=== PATIENT | female | born 1965 | race Caucasian/White ===

== ENCOUNTER 2017-09-29 11:42 | Emergency (ER) | payer OTHER | END 2017-09-29 12:55 | disposition home or self-care (01) | LOC: D.ER 11:42 | DX: J11.1 Influenza due to unidentified influenza virus with other respiratory manifestations (principal); R07.89 Other chest pain; R51 Headache; R50.9 Fever, unspecified ==

== ENCOUNTER 2018-01-25 09:19 | Emergency (ER) | payer OTHER ==
[~2018-01-25] VITALS: Ht 162.6 cm; Wt 78.2 kg
[2018-01-25 09:24] VITALS: Ht 162.6 cm; Wt 78.2 kg
[2018-01-25] MEDS ORDERED: ZANTAC150 MG PO (09:25)
[2018-01-25 10:26] LABS: BASOPHILS 1.1 % (0-2); EOSINOPHILS 4.1 % (0-7); HEMATOCRIT 40.9 % (36.0-48.0); HEMOGLOBIN 13.9 g/dL (12-16); LYMPHOCYTES 28.6 % (15-50); MEAN PLATELET VOLUME 10.6 fL (7.4-10.4); MONOCYTES 6.3 % (2-11); NEUTROPHILS 59.9 % (40-80); PLATELET COUNT 177 10x3/uL (130-400); RBC 4.35 10x6/uL (4.00-5.40); RDW 12.2 % (11.5-14.5); WBC 4.6 10x3/uL (4.8-10.8)
[2018-01-25 11:09] LABS: ALBUMIN 3.7 g/dL (3.4-5.0); ALT (SGPT) 32 U/L (10-68); CALC OSMOLALITY 285 mosm/kg (275-300); CALCIUM 9.2 mg/dL (8.5-10.1); CARBON DIOXIDE 30.4 mmol/L (21.0-32.0); CHLORIDE - SERUM 105 mmol/L (98-107); CKMB 1.4 U/L (0.0-3.6); CREATININE - SERUM 0.9 mg/dL (0.6-1.3); GLUCOSE 94 mg/dL (74-106); POTASSIUM - SERUM 4.3 mmol/L (3.5-5.1); PROTEIN - SERUM 7.4 g/dL (6.4-8.2); SODIUM 143 mmol/L (136-145); UREA NITROGEN 14 mg/dL (7-18); eGFR NON AFRICAN AMERICAN 70 mL/min (90-120)
[2018-01-25 11:10] LABS: ALKALINE PHOSPHATASE 129 U/L (46-116); TROPONIN-I < 0.017 ng/mL (0.000-0.060)
[2018-01-25 11:55] VITALS: BP 138/78
== END 2018-01-25 11:59 | disposition home or self-care (01) ==
LOC: D.ER 09:19
PROVIDERS: Emergency Medicine
DX: R53.1 Weakness (principal)

== ENCOUNTER → 2018-03-05 19:52 | Outpatient (CLI) | payer OTHER ==
[2018-01-25 09:24] VITALS: BMI 29.6
[~2018-03-05 19:52] MED LIST: ZANTAC150 MG PO
== END | disposition home or self-care (01) ==
LOC: D.MAMMO 11:45
DX: Z12.31 Encounter for screening mammogram for malignant neoplasm of breast (principal)

== ENCOUNTER 2018-09-15 02:05 | Emergency (ER) | payer OTHER ==
[2018-09-15 02:08] VITALS: Ht 162.6 cm
[2018-09-15] MEDS ORDERED: KEFLEX500 MG PO (03:39)
[2018-09-15] MEDS ORDERED: HYDROCODON-ACE1 EAC2 PO (03:40)
[2018-09-15 04:39] VITALS: BP 140/88
== END 2018-09-15 04:15 | disposition home or self-care (01) ==
LOC: D.ER 02:05
DX: J06.9 Acute upper respiratory infection, unspecified (principal); R09.89 Other specified symptoms and signs involving the circulatory and respiratory systems; J02.9 Acute pharyngitis, unspecified

== ENCOUNTER 2019-04-17 09:14 | Observation (INO) | payer SELFPAY ==
[~2019-04-17] VITALS: Ht 162.6 cm; Wt 72.7 kg
--- NOTE | ~2019-04-17 | HEMODYNAMI ---
PATIENT:GURPREET BOSE MEDICAL RECORD: [id number] : 69 [id number] ADMISSION DATE: 04/17/19 Generatedon:04/18/201911:30 Patient name: GURPREET BOSE Patient #: [id number] SSN: : Date of study: 04/18/2019 Page: Of Hemodynamic Procedure Report Patient Data Patient Demographics Procedure consent was obtained First Name: GURPREET Gender: Female Last Name: LIDYA : 1965 Patient #: [id number] Age: 53 year(s) Race: Unknown Additional ID: [id number] Contact details Address: [address] [place] [address] State: [place] City: [place] Zip code: [address] Past Medical History Allergies: No known allergies Admission Admission Data Admission Date: 04/17/2019 Admission Time: 12:29 Admit Source: Emergency department Room #: D.2116 Lab Results Lab Result Date: 04/18/2019 Lab Result Time: 9:36 Biochemistry Name Units Result Min Max BUN mg/dl 10 --(-*--)-- 7 18 Creatinine mg/dl 0.7 --(*---)-- 0.6 1.3 CBC Name Units Result Min Max Hematocrit % 42.9 --(*---)-- 42 54 Hemoglobin g/dl 15.4 --(-*--)-- 13.5 17.5 Procedure Procedure Types Cath Procedure Diagnostic Procedure C [facility] w/Coronaries PCI Procedure Coronary Stent Coronary Stent Initial Procedure Description Procedure Date Procedure Date: 04/18/2019 Procedure Start Time: 11:08 Procedure End Time: 11:29 Procedure Staff Name Function Chauncey Posey MD Performing Physician Warren Christina RT Monitor Katarina Graf RT Scrub Elliot Ross RN Nurse Honorio Carey RT Bearing Grinder Procedure Data Cath Procedure Fluoroscopy Diagnostic fluoroscopy Total fluoroscopy Time: 3.6 time: 3.6 min min Diagnostic fluoroscopy Total fluoroscopy dose: 370 dose: 370 mGy mGy Contrast Material Contrast Material Type Amount (ml) Isovue 300 74 Entry Location Entry Primary Successful Side Size Upsize Upsize Entry Closure Hughes ccessful Closure Location (Fr) 1 (Fr) 2 (Fr) Remarks Device Remarks Radial Right 6 Fr Mechanical artery Short Compression Estimated blood loss: 10 ml Diagnostic catheters Device Type Used For End Catheter Placement DIAGNOSTIC Craig 110cm 5 Procedure Fr catheter ([id number]) Procedure Complications No complications Procedure Medications Medication Administration Route Dosage 0.9% NaCl I.V. 100 ml/hr Oxygen etCO2 Nasal cannula 2 l/min Heparin Flush Bag added to field 2 bags (1000units/500ml NS) Lidocaine 2% added to field 20 Radial Cocktail added to field 1 syringe (Verapamil 2mg/Nitro 400mcg/Heparin 1500units) Versed I.V. 2 mg Fentanyl I.V. 100 mcg Versed I.V. 2 mg Fentanyl I.V. 50 mcg Radial Cocktail I.A. 1 syringe (Verapamil 2mg/Nitro 400mcg/Heparin 1500units) Heparin Bolus I.V. 4000 units Plavix P.O. 75 mg Hemodynamics Rest HGB: 15.4 (g/dl) Heart Rate: 101 (bpm) Pressure Samples Time Site Value (mmHg) Purpose Heart Use Rate(bpm) 11:09 LV 94/48,52 Snapshot 93 Snapshots Pre Cath Intra NCS Post Cath Vital Signs Time Heart Resp SPO2 etCO2 NIBP (mmHg) Rhythm Pain Sedation Rate (ipm) (%) (mmHg) Status Level (bpm) 10:52:56 97 13 100 39.2 131/93(118) NSR 0 (11) 10(A) , No pain 10:57:12 96 14 99 38.4 129/84(101) NSR 0 (11) 10(A) , No pain 11:01:28 85 17 99 41.4 108/74(93) NSR 0 (11) 10(A) , No pain 11:05:42 82 11 97 42.9 120/68(85) NSR 0 (11) 10(A) , No pain 11:10:00 95 11 99 43.7 126/72(85) NSR 0 (11) 9(A) , No pain 11:14:16 98 12 93 42.2 102/69(86) NSR 0 (11) 9(A) , No pain 11:18:28 101 12 92 34.6 107/69(87) NSR 0 (11) 10(A) , No pain 11:22:44 93 12 95 43.7 104/63(83) NSR 0 (11) 9(A) , No pain 11:26:43 96 39.1 No Cuff NSR 0 (11) 9(A) , No pain Medications Time Medication Route Dose Verified Delivered Reason Not es Effectiveness by by 10:50:54 0.9% NaCl I.V. 100 Elliot Elliot Per physician ml/hr Cody Ross RN RN 10:51:06 Oxygen etCO2 2 l/min Elliot Elliot for low 02 sats Nasal Lorigan Cody cannula RN RN 10:51:18 Heparin Flush added 2 bags Elliot Elliot used for Bag to Cody Ross procedure (1000units/500ml field RN RN NS) 10:51:28 Lidocaine 2% added 20ml Elliot Elliot for local to vial Lorigan Loralvina anesthetic RN RN 10:51:42 Radial Cocktail added 1 Elliot Elliot used for (Verapamil to syringe Lorigan Cody procedure 2mg/Nitro field RN RN 400mcg/Heparin 1500units) 10:59:38 Versed I.V. 2 mg Elliot Elliot for sedation Cody Ross RN RN 10:59:49 Fentanyl I.V. 100 mcg Elliot Elliot for sedation Cody Ross RN RN 11:07:45 Versed I.V. 2 mg Elliot Elliot for sedation Cody Ross RN RN 11:07:55 Fentanyl I.V. 50 mcg Elliot Elliot for sedation Cody Ross RN RN 11:09:15 Radial Cocktail I.A. 1 Elliot Chauncey for (Verapamil syringe Cody Posey MD vasodilation 2mg/Nitro RN 400mcg/Heparin 1500units) 11:13:15 Heparin Bolus I.V. 4000 Elliot Elliot for units Cody Ross anticoagulation RN RN 11:18:55 Plavix P.O. 75 mg Elliot Elliot for Lorigan Cody antiplatelet RN RN therapy Procedure Log Time Note 10:38:06 Honorio Carey RT(R) sent for patient. Start room use. 10:43:51 Admit Source: Emergency department 10:44:38 ACC Patient presents with Unstable Angina CCS Anginal Class 4--Inability to carry out any physical activity w/o angina. Angina may occur at rest. 10:50:54 0.9% NaCl 100 ml/hr I.V. was administered by Elliot Ross RN; Per physician; 10:51:06 Oxygen 2 l/min etCO2 Nasal cannula was administered by Elliot Ross RN; for low 02 sats; 10:51:18 Heparin Flush Bag (1000units/500ml NS) 2 bags added to field was administered by Elliot Ross RN; used for procedure; 10:51:28 Lidocaine 2% 20ml vial added to field was administered by Elliot Ross RN; for local anesthetic; 10:51:42 Radial Cocktail (Verapamil 2mg/Nitro 400mcg/Heparin 1500units) 1 syringe added to field was administered by Elliot Ross RN; used for procedure; 10:51:45 Vital chart was started 10:56:13 ACCPatient has been prescribed/administered the following anti-anginal medication within the last 2 weeks: None 10:56:15 Procedure Status Urgent Heart Cath (IP). 10:56:16 Time tracking: Regular hours (M-F 7:00 - 5:00) 10:56:20 Plan of Care:Hemodynamics will remain stable., Cardiac rhythm will remain stable., Comfort level will be maintained., Respiratory function will remain adequate., Patient/ family verbilizes understanding of procedure., Procedure tolerated without complication., Recovers from procedure without complications.. 10:56:24 Patient received from Med II to CCL 1 Alert and oriented. Tansferred to table in Supine position. 10:56:30 Warm blankets applied, and roberto hugger turned on for patient comfort. 10:56:32 Signed procedure consent form obtained from patient. 10:56:32 Correct patient and procedure confirmed by team. 10:56:33 Baseline sample Acquired. 10:56:33 ECG and BP/O2 sat monitors applied to patient. 10:56:42 H&P Date Dictated: 04/17/2019 Within 30 days and on chart.. 10:56:43 Pre-procedure instructions explained to patient. 10:56:44 Pre-op teaching completed and patient verbalized understanding. 10:56:45 Family in patients room. 10:56:47 Patient NPO since Midnight. 10:56:57 Patient allergic to No known allergies 10:56:58 Is the patient allergic to Iodine/contrast media? No. 10:56:59 Is patient on blood thinner?Yes 10:57:03 ACC The patient was administered the following blood thiners within the last 24 hours: ACCAspirin, ACCPlavix 10:57:04 Patient diabetic? No. 10:57:08 Previous problem with sedation/anesthesia? No ? 10:57:48 Snore? No 10:57:50 Sleep apnea? No 10:57:51 Deviated septum? No 10:57:51 Opens mouth fully? Yes 10:57:52 Sticks out tongue? Yes 10:57:53 Airway obstruction? No ? 10:57:56 Dentures? Yes out 10:58:01 Pre procedure: right dorsailis pedis pulse 2+ Normal; easily identifiable; not easily obliterated 10:58:04 Patient pain scale 0/10 ?. 10:58:06 Modified Telly's test Ulnar < 7 seconds 10:58:10 IV patent on arrival in left forearm with 0.9% NaCl at O. 10:58:43 Lab Result : BUN 10 mg/dl 10:58:43 Lab Result : Hemoglobin 15.4 g/dl 10:58:43 Lab Result : Creatinine 0.7 mg/dl 10:58:43 Lab Result : Hematocrit 42.9 % 10:58:46 Lab results completed and on chart. 10:58:49 Right Radial & Right Groin area was prepped with chlora-prep and draped in sterile fashion 10:58:50 Alarms reviewed by R. N. 10:58:50 Sharps counted by scrub and verified by R.N. 10:58:53 Use device set Radial Dx or PCI 10:58:54 ACIST Syringe (51293) opened to sterile field. 10:58:54 Medline Cath Pack ([id number]) opened to sterile field. 10:58:55 Bag Decanter () opened to sterile field. 10:58:55 ACIST Hand Control (82873) opened to sterile field. 10:58:56 ACIST Manifold (01117) opened to sterile field. 10:58:56 Tegaderm 4 x 4 (1626W) opened to sterile field. 10:58:56 MBrace Wrist Support ([id number]) opened to sterile field. 10:58:58 EMERALD Guide Wire (022-797) opened to sterile field. 10:58:59 SHEATH 6FR RAIN (8081114) opened to sterile field. 10:59:05 Baseline sample Acquired. 10:59:08 Rhythm: sinus rhythm 10:59:09 Full Disclosure recording started 10:59:13 Physician arrived 10:59:13 --------ALL STOP TIME OUT------ 10:59:14 Final Timeout: patient, procedure, and site verified with staff and physician. All members of the team are in agreement. 10:59:16 Right Radial & Right Groin site verified by team. 10:59:19 Fire Safety Assessment: A--An alcohol-based skin anteseptic being used preoperatively., C--Open oxygen or nitrous oxide is being used., D--An ESU, laser, or fiber-optic light is being used. 10:59:22 Physical assessment completed. ASA score P 2 - A patient with mild systemic disease as per Chauncey Posey MD. 10:59:26 1) 90+ Normal kidney functon but urine findings or structural abnormalities or genetic trait point to kidney disease. 10:59:28 Maximum allowable contrast dose (3.7 X eGFR X 0.75)250 ml. 10:59:31 Sedation plan: IV Moderate Sedation Medication:Versed, Fentanyl 10:59:38 Versed 2 mg I.V. was administered by Elliot Ross RN; for sedation; 10:59:49 Fentanyl 100 mcg I.V. was administered by Elliot Ross RN; for sedation; 11:05:26 Zero performed for pressure channel P1 11:07:45 Versed 2 mg I.V. was administered by Elliot Ross RN; for sedation; 11:07:55 Fentanyl 50 mcg I.V. was administered by Elliot Ross RN; for sedation; 11:08:38 Procedure started. 11:08:43 Local anesthetic to right radial artery with Lidocaine 2% by Chauncey Posey MD.INITIAL ACCESS ONLY 11:08:50 A 6 Fr Short sheath was inserted into the Right Radial artery 11:08:55 A DIAGNOSTIC Craig 110cm 5 Fr catheter ([id number]) was advanced over the wire and used for Procedure. 11:09:15 Radial Cocktail (Verapamil 2mg/Nitro 400mcg/Heparin 1500units) 1 syringe I.A. was administered by Chauncey Posey MD; for vasodilation; 11:: LV gram done using MATHIAS 11::03 Injector settings: Ml/sec: 5, Volume: 15, 11:10:04 LV hemodynamics recorded. 11:10:08 EF : 65 % 11:10:23 RCA angiography performed. 11::42 LCA angiography performed. 11:11:31 Catheter exchanged over wire. 11:11:51 INFLATOR Merit BasixCompak (RD1268) opened to sterile field. 11:11:51 CHOICE PT Extra Support 182cm wire ([id number]) opened to sterile field. 11:11:52 GUIDE 6FR XBLAD 3.5 catheter ([id number]) opened to sterile field. 11:13:03 6 Fr xblad 3.5 guide catheter was inserted over the wire 11:13:07 ACCDominant side:Co-Dominant 11:13:12 Pre PCI Site: [place] mLAD has 85% stenosis. 11:13:14 ACC Pre-intervention ELLE Flow is 3. 11:13:15 Heparin Bolus 4000 units I.V. was administered by Elliot Ross RN; for anticoagulation; 11:13:24 choice pt es wire advanced. 11:15:31 Wire advanced across lesion. 11:16:00 Place stent Inflation Number: 1 A NATHANAEL RX 2.25 x 18 stent ([id number]) was prepped and advanced across the Mid LAD . The stent was deployed at 13 ATUL for 0:10 (min:sec) . 11:16:33 Stent catheter was removed intact over wire. 11:16:38 ACT drawn and resulted at 330 seconds. (normal therapeutic range 180-240 seconds). 11:17:42 Place stent Inflation Number: 2 A NATHANAEL RX 2.25 x 15 stent ([id number]) was prepped and advanced across the Mid LAD . The stent was deployed at 13 ATUL for 0:10 (min:sec) . 11:18:31 Post PCI Site: [place] mLAD has 0% stenosis. 11:18:33 ACC Post-intervention ELLE Flow is 3. 11:18:34 Stent catheter was removed intact over wire. 11:18:36 Wire removed. 11:18:36 Guide catheter removed. 11:18:39 ZEPHYR REGULAR TR BAND (373570) opened to sterile field. 11:18:45 Sheath removed intact; hemostasis achieved with Mechanical Compression to the Right Radial artery. 11:18:47 Procedure ended.(Physican Out) 11:18:51 Fluoroscopy time 03.60 minutes. 11:18:55 Plavix 75 mg P.O. was administered by Ellito Ross RN; for antiplatelet therapy; :: Flurop Dose total: 370 11:19:23 Fluoroscopy dose: 370 mGy 11::31 Dose Area Product 22668 mGy/cm. 11:23:48 Contrast amount:Isovue 300 74ml. 11::51 Maximum allowable dose exceeded? No. 11:23:52 Sharps counted by scrub and verified by R.N. 11:27:16 Insertion/operative site no bleeding no hematoma. 11:27:23 Post right radial artery:stable, soft, clean and dry 11:27:26 Post-procedure physical assessment completed. ASA score P 2 - A patient with mild systemic disease as per Chauncey Posey MD. 11:27:28 Post procedure rhythm: unchanged. 11::31 Estimated blood loss: 10 ml 11:27:32 Post procedure instruction explained to patient.Patient verbalizes understanding. 11:27:32 Patient needs reinforcement of post procedure teaching. 11:27:40 Procedure type changed to Cath procedure, Diagnostic procedure, LHC, LHC w/Coronaries, PCI procedure, Coronary Stent, Coronary Stent Initial 11::56 Procedure and supply charges have been captured, reviewed, submitted and are correct. 11::59 Procedure Complication : No complications 11:29:04 Vital chart was stopped 11::05 See physician's report for complete and final results. 11:29:07 Report given to PCU. 11:29:09 Patient transfered to PCU with Stretcher. 11:29:10 Procedure ended. 11:29:10 Full Disclosure recording stopped 11:29:18 ACC-PCI Only Patient was given prescriptions, or instructed by Chauncey Posey MD to start/continue the following medications upon discharge: Aspirin, Plavix 11:29:19 End room use (Document Last) Intervention Summary Intervention Notes Time ActionType Lesion and Equipment Used Action# Pressure Duration Attributes 11:16:00 Place stent Mid LAD NATHANAEL RX 2.25 x 1 13 00:10 18 stent ([id number]) 11:17:42 Place stent Mid LAD NATHANAEL RX 2.25 x 2 13 00:10 15 stent ([id number]) Device Usage Item Name Manufacture Quantity Catalog Number Hospital Part Current M inimal Lot# / Charge Number Stock Stock Serial# Code ACIST Syringe Acist 1 67171 200569 781607 074986 2 0 (50217) Medical Systems Inc Medline Cath Medline 1 [id number] 023912 26253 970234 5 Pack ([id number]) Bag Decanter Microtek 1 2001S 777988 43285 036954 5 (2001S) Medical Inc. ACIST Hand Acist 1 07523 524179 921864 035725 5 Control Medical (91302) Systems Inc ACIST Manifold Acist 1 49448 588854 920670 325601 5 (92090) Medical Systems Inc Tegaderm 4 x 4 3M 1 1626W 119323 973975 784816 5 (1626W) MBrace Wrist Advanced 1 140-0250-00 580357 89136 454891 5 Support Vascular (830614026) Dynamics EMERALD Guide Cardinal 1 502-455 063024 446066 812261 5 Wire (502-455) Health SHEATH 6FR Cardinal 1 7274995 525476 3015452 474012 5 RAIN (0451108) Health DIAGNOSTIC Terumo 1 40-8613 630718 922861 417758 5 Craig 110cm 5 Fr catheter (153436) INFLATOR Merit Merit 1 LZ1932 398861 376186 672116 1 5 Thanx (FE1642) CHOICE PT Lohn 1 [id number] 725265 944486 370716 5 Extra Support Scientific 182cm wire (8488330L9) GUIDE 6FR Cardinal 1 80096159 335328 402136 179859 1 0 XBLAD 3.5 Health catheter (08757822) NATHANAEL RX 2.25 x Medtronic 1 [id number] 110813 7092405 595283 5 [id number] 18 stent ([id number]) NATHANAEL RX 2.25 x Medtronic 1 [id number] 182563 8054245 077785 5 [id number] 15 stent ([id number]) ZEPHYR REGULAR Cardinal 1 742963 688897 6088035 756023 5 [facility] (380923) Signature Audit Brea Stage Time Signature Unsigned Intra-Procedure 04/18/2019 Chauncey Posey 11:30:14 AM MD Signatures Performing Physician : Signature : Chauncey Posey MD Date : Time : Monitor : Warren Christina RT Signature : Date : Time : Nurse : Elliot Ross Signature : RN Date : Time : [place] [address] [place] [address]
[~2019-04-17 09:14] MED LIST changes: +HYDROCODON-ACE1 EAC2 PO; +KEFLEX500 MG PO
[2019-04-17] MEDS ORDERED: ZANTAC300 MG PO (09:29)
[2019-04-17 09:40] LABS: BASOPHILS 0.7 % (0-2); EOSINOPHILS 2.5 % (0-7); HEMATOCRIT 42.9 % (36.0-48.0); HEMOGLOBIN 15.4 g/dL (12-16); IMMATURE GRANULOCYTES 0.2 % (0-5); LYMPHOCYTES 33.6 % (15-50); MCH 32.6 pg (26.0-34.0); MCHC 35.9 g/dL (31.0-37.0); MCV 90.9 fL (80.0-100.0); MEAN PLATELET VOLUME 11.2 fL (7.4-10.4); MONOCYTES 7.1 % (2-11); NEUTROPHILS 55.9 % (40-80); RBC 4.72 10x6/uL (4.00-5.40); RDW 12.4 % (11.5-14.5); WBC 5.6 10x3/uL (4.8-10.8)
[2019-04-17 09:41] LABS: PLATELET COUNT 234 10x3/uL (130-400)
[2019-04-17 09:49] LABS: APTT 30.2 SECONDS (22.8-39.4); INR 0.97 (0.85-1.17); PROTIME 12.4 SECONDS (11.6-15.0)
[2019-04-17 10:00] LABS: ALBUMIN 4.2 g/dL (3.4-5.0); ALKALINE PHOSPHATASE 100 U/L (46-116); ALT (SGPT) 36 U/L (10-68); BILIRUBIN - TOTAL 0.72 mg/dL (0.2-1.3); CALC OSMOLALITY 283 mosm/kg (275-300); CALCIUM 10.1 mg/dL (8.5-10.1); CARBON DIOXIDE 27.8 mmol/L (21.0-32.0); CHLORIDE - SERUM 105 mmol/L (98-107); CREATININE - SERUM 0.7 mg/dL (0.6-1.3); GLUCOSE 93 mg/dL (74-106); POTASSIUM - SERUM 3.6 mmol/L (3.5-5.1); PROTEIN - SERUM 8.3 g/dL (6.4-8.2); SODIUM 143 mmol/L (136-145); UREA NITROGEN 10 mg/dL (7-18); eGFR NON AFRICAN AMERICAN > 90 mL/min (90-120)
[2019-04-17 10:03] LABS: CKMB 1.4 U/L (0.0-3.6); CREATINE KINASE 120 UL (21-215); MAGNESIUM - SERUM 2.2 mg/dL (1.8-2.4); TROPONIN-I < 0.017 ng/mL (0.000-0.060)
[2019-04-17 12:00] VITALS: BP 151/56
--- NOTE | 2019-04-17 12:57 | NUR ---
PATIENT TO BE ADMITTED TO ROOM 2116. REPORT TO RILEY MARTINES.
--- NOTE | 2019-04-17 13:30 | NUR ---
RECEIVED PT TO ROOM 2115 VIA W/C FROM ER RESP UNLABORED SKIN W/D COLOR WNL AAOX4 DENIES ANY CHEST PAIN AT THIS TIME TELEMETRY PLACED SINUS ZARIA RATE 57 WILL CONTINUE TO MONITOR
[2019-04-17 14:20] VITALS: BP 131/77; Ht 162.6 cm; Wt 72.7 kg
--- NOTE | 2019-04-17 14:31 | HP ---
PATIENT: GURPREET BOSE MEDICAL RECORD: [id number] ACCOUNT: [id number] LOCATION:[address] : [birth year] ADMISSION DATE: 04/17/19 PCP: VERONA LOYA MD HISTORY AND PHYSICAL EXAMINATION ADMITTING DIAGNOSES: 1. Chest pain. 2. Syncope. 3. Shortness of breath, dyspnea on exertion. HISTORY OF PRESENT ILLNESS: Mrs. Bose had severe chest discomfort lasted approximately 20 minutes and ended with an episode of syncope today. She did not feel any palpitations or anything leading up to the syncope. The chest pain got very intense. It was a classic anginal discomfort, substernal, centered in her mid chest, pressure-like sensation. She continues to have mild pressure now. She has not had any chest pain until today. She has noticed shortness of breath over the past week. She has a family history of coronary artery disease. She has been told she has hyperlipidemia, is not on any medications. She was hypertensive today as well. PHYSICAL EXAMINATION: CONSTITUTIONAL/GENERAL APPEARANCE: Well nourished, well developed, appears stated age. EYES: Lids and conjunctivae noninjected. No discharge. No pallor. ENT: Lips within normal limit. No cyanosis. No pallor. NECK: Carotid arteries, bilateral normal upstroke. No bruits. No thrills. No jugular venous pressure or distention. CERVICAL LYMPH NODES: Nontender. Nonenlarged. THYROID: Not enlarged. No nodules. CARDIOVASCULAR: Precordial exam, nondisplaced. No heaves or pericardial thrills. Rate and rhythm, regular. Heart sounds, normal S1, normal S2. No S3, no gallop, no rub. Systolic murmur, not heard. Diastolic murmur, not heard. RESPIRATORY: Respiratory effort, unlabored. Normal curvature. No thoracic deformity. No chest wall tenderness. Percussion, resonant. Auscultation, clear. No wheezes, no rales, no rhonchi. ABDOMEN: Soft, nondistended, nontender. No abdominal pain, no vomiting and normal appetite. MUSCULOSKELETAL: No joint tenderness, normal gait, normal tone. SKIN: Warm and dry. OVERALL IMPRESSION: Her EKG is with no significant ST-T abnormalities. We will risk stratify with stress testing and Cardiolite imaging. Further care depends upon findings of the stress test. TRANSINT:[id number] Voice Confirmation ID: [id number] DOCUMENT ID: [id number] HISTORY AND PHYSICAL [id number] GURPREET BOSE JEFFREY MD at 1431 CC: [id number] DICTATION DATE: 04/17/19 1142 KEY PERSON: 04/17/19 1152 ADM IN [place] [id number] [place] [id number]
[2019-04-17 15:46] LABS: CKMB 1.3 U/L (0.0-3.6); CREATINE KINASE 98 UL (21-215)
[2019-04-17 15:48] LABS: TROPONIN-I < 0.017 ng/mL (0.000-0.060)
[2019-04-17 17:09] VITALS: BP 116/76
[2019-04-17 20:00] VITALS: BP 118/80
--- NOTE | 2019-04-17 21:15 | NUR ---
PATIENT SHOWERED. TELEMETRY IN PLACE. CALL LIGHT WITHIN REACH. WILL CPOC.
[2019-04-17 21:23] LABS: CKMB 2.1 U/L (0.0-3.6); CREATINE KINASE 119 UL (21-215)
[2019-04-17 21:26] LABS: TROPONIN-I < 0.017 ng/mL (0.000-0.060)
[2019-04-18 03:33] LABS: BASOPHILS 0.7 % (0-2); EOSINOPHILS 4.3 % (0-7); HEMATOCRIT 40.8 % (36.0-48.0); HEMOGLOBIN 14.1 g/dL (12-16); IMMATURE GRANULOCYTES 0.2 % (0-5); LYMPHOCYTES 31.2 % (15-50); MCH 31.8 pg (26.0-34.0); MCHC 34.6 g/dL (31.0-37.0); MCV 91.9 fL (80.0-100.0); MEAN PLATELET VOLUME 10.6 fL (7.4-10.4); MONOCYTES 7.1 % (2-11); NEUTROPHILS 56.5 % (40-80); PLATELET COUNT 194 10x3/uL (130-400); RBC 4.44 10x6/uL (4.00-5.40); RDW 12.5 % (11.5-14.5); WBC 5.5 10x3/uL (4.8-10.8)
[2019-04-18 04:00] VITALS: BP 128/76
[2019-04-18 04:04] LABS: ALBUMIN 3.7 g/dL (3.4-5.0); ALKALINE PHOSPHATASE 83 U/L (46-116); ALT (SGPT) 31 U/L (10-68); BILIRUBIN - TOTAL 0.59 mg/dL (0.2-1.3); CALCIUM 8.8 mg/dL (8.5-10.1); CARBON DIOXIDE 29.2 mmol/L (21.0-32.0); CHLORIDE - SERUM 107 mmol/L (98-107); CKMB 1.5 U/L (0.0-3.6); CREATINE KINASE 97 UL (21-215); GLUCOSE 91 mg/dL (74-106); PROTEIN - SERUM 6.9 g/dL (6.4-8.2); SODIUM 142 mmol/L (136-145)
[2019-04-18 04:05] LABS: CALC OSMOLALITY 283 mosm/kg (275-300); CREATININE - SERUM 0.9 mg/dL (0.6-1.3); TROPONIN-I < 0.017 ng/mL (0.000-0.060); UREA NITROGEN 15 mg/dL (7-18); eGFR NON AFRICAN AMERICAN 70 mL/min (90-120)
--- NOTE | 2019-04-18 07:15 | NUR ---
RECEIVED PT IN BED AAOX4 RESP UNLABORED SKIN W/D COLOR WNL DENIES ANY NEEDS OR DISCOMFORT AT THIS TIME
--- NOTE | 2019-04-18 10:20 | NUR ---
PT TO INTERIM CONTROLLER VIA BED
--- NOTE | 2019-04-18 11:26 | ST ---
PATIENT:GURPREET BOSE MEDICAL RECORD: [id number] SEX: F LOCATION:D.M2 D.211 ORDER #: ADMISSION DATE: 04/17/19 AGE OF PATIENT: 53 REFERRING PHYSICIAN: INTERPRETING PHYSICIAN: LUBA SNELL MD DATE OF SERVICE: 04/17/2019 PROCEDURE: Nuclear stress test. INDICATION: Chest pain compatible with angina. She was exercised on standard Yefri protocol developing chest pain and ST depression in stage I, requiring her to only go 4 minutes. She did achieve 85% max target heart rate response. Nuclear imaging reveals a perfusion defect inferiorly that appears reversible. This includes the basal, mid, apical inferior segments as well as the apex itself. FINDINGS: There is as well poor perfusion of the anterior segments. This includes the basal, mid, apical anterior segments; however, this looks overall fixed. OVERALL IMPRESSION: This is an abnormal nuclear stress test, high risk by definition of that. She developed anginal chest discomfort with [address] depression within the first stage of Yefri. Nuclear imaging suggests perfusion defects inferiorly as well as anteriorly. It is difficult to discern secondary to a large amount of bowel uptake and tracer in the bowel. However, there is definite reversibility inferiorly. Overall fixed perfusion defect at stress anteriorly as well, possibly suggestive of multivessel disease. TRANSINT:[id number] Voice Confirmation ID: [id number] DOCUMENT ID: [id number] LUBA SNELL MD at 1126 CC: [id number] DICTATION DATE: 04/17/19 1538 CARE PROCESS MANAGER: 04/18/19 0039 ADM IN [facility] [address] [place] [address]
--- NOTE | 2019-04-18 11:47 | NUR ---
RECEIVED PT BACK TO ROOM VIA BED PPPX4 RESP UNLABORED VSS ZYPHER BAND INTACT TO RT WRIST NO SIGNS OF BLEEDING
[2019-04-18] MEDS ORDERED: ASPIRIN81 MG PO (12:22)
[2019-04-18] MEDS ORDERED: PLAVIX75 MG PO (12:22)
--- NOTE | 2019-04-18 15:34 | OP ---
PATIENT NAME: GURPREET BOSE MEDICAL RECORD: [id number] :69 LOCATION:D.M2 D.2116 ADMISSION DATE:04/17/19 SURGEON: LUBA SNELL MD DATE OF OPERATION: 04/18/2019 PROCEDURES: 1. PTCA stent LAD. 2. Left heart catheterization. 3. Selective coronary angiography. 4. Left ventriculogram. INDICATION: Angina, coronary artery disease, abnormal nuclear stress test, anterior ischemia. PROCEDURE IN DETAIL: After informed consent was obtained and after a detailed description of risks, benefits as well as alternative therapies, the patient elected to proceed with angiogram and angioplasty. The right radial area was prepped and draped in normal sterile fashion. Right radial artery was cannulated via modified Seldinger technique with placement of 6-Macedonian sheath. All catheters exchanged through this sheath. FINDINGS: Left ventriculogram was performed in standard 30-degree MATHIAS view, reveals good cardiac wall motion, ejection fraction 65%. SELECTIVE CORONARY ANGIOGRAPHY: 1. Left main has no significant angiographic disease. 2. Left anterior descending has 80% to 90% stenosis in the mid vessel and this correlates with perfusion defect on nuclear stress test. 3. Left circumflex has moderate irregularities, but no flow-limiting stenosis. 4. Right coronary artery has mild irregularities, but no flow-limiting stenosis. PTCA STENT OF THE LAD: The stent used was 2.25 x 18 and 2.25 x 15, both [place] stents. Result was 0% residual stenosis. OVERALL IMPRESSION: Successful percutaneous transluminal coronary angioplasty stent of the left anterior descending going from 80% to 90% initial stenosis to 0% residual. TRANSINT:[id number] Voice Confirmation ID: [id number] DOCUMENT ID: [id number] LUBA SNELL MD at 1534 CC: [id number] DICTATION DATE: 04/18/19 1127 SOCIAL HUMAN SERVICES ASSISTANTS: 04/18/19 1248 ADM IN [place] [id number] [place] [address]
--- NOTE | 2019-04-18 18:07 | MORECARE ---
CASE MANAGEMENT DISCHARGE SUMMARY PATIENT: GURPREET BOSE UNIT: [id number] ADM DATE: 04/17/19 AGE: 53 : 69 SEX: F ROOM/BED: D.2116 AUTHOR: OSKAR DOUGLAS PHYSICIAN: REFERRING PHYSICIAN: LUBA SNELL MD DATE OF SERVICE: 04/18/19 Discharge Plan Patient Name: GURPREET BOSE [facility] [facility] 1965 Planned Disposition: Home Anticipated Discharge Date: 04/18/19 Discharge Date: Expected LOS: 1 Initial Reviewer: [email or web address] Initial Review Date: 04/18/2019 Generated: 04/18/19 7:06 pm Patient Name: GURPREET BOSE Page [id number] at 1807 All edits/amendments must be made on the electronic document DICTATION DATE: 04/18/191805 TECHNICAL ARCHITECT: TAMARA 04/18/191805 RPT#: [id number] DC DATE: STATUS: ADM IN [facility] [address] [place] [address] END OF REPORT
--- NOTE | 2019-04-18 18:33 | NUR ---
REVIEWED DISCHARGE INSTRUCTIONS WITH PT AND BOTH STATE UNDERSTANDING COPY GIVEN DCD SALINE LOCK TO LT HAND WITH IV CATHETER INTACT SITE FREE OF REDNESS OR EDEMA ZEPHER BAND REMOVED DRSG APPLIED NO SIGN OF BLEEDING PT DISCHARGED HOME IN STABLE CONDITION WITH ALL PERSONAL BELONGINGS LEFT UNIT VIA W/C
--- NOTE | 2019-04-21 11:24 | DS ---
PATIENT:GURPREET BOSE :69 MEDICAL RECORD: [id number] DISCHARGE SUMMARY ADMISSION DATE: 04/17/19 DISCHARGE DATE: 04/18/19 DISCHARGE DIAGNOSES: 1. Unstable angina. 2. Coronary artery disease. 3. Percutaneous transluminal coronary angioplasty stent left anterior descending this admission. HOSPITAL COURSE: Mrs. Bose presents with unstable anginal symptomatology, underwent stress testing revealing anterior perfusion defect, underwent cardiac catheterization revealing significant disease of the LAD, underwent successful PTCA stent of the LAD, was discharged home. Aspirin and Plavix added to her medical regimen. Follow up with [facility] in 1 month. TRANSINT:[id number] Voice Confirmation ID: [id number] DOCUMENT ID: [id number] LUBA SNELL MD at 1124 CC: [id number] DICTATION DATE: 04/18/19 1125 [employer] FRUIT: 04/19/19 0137 DIS IN 04/18/19 [place] [id number] [place] [address]
== END 2019-04-18 18:33 | disposition home or self-care (01) ==
LOC: D.ER 09:14 → D.M2 12:29 → OBSVTIME 12:31 → D.M2 04-18 18:33
PROVIDERS: Family Medicine; ADMIT Internal Medicine Interventional Cardiology; ATTEND Internal Medicine Interventional Cardiology
DX: I25.119 Atherosclerotic heart disease of native coronary artery with unspecified angina pectoris (principal); R55 Syncope and collapse; R94.39 Abnormal result of other cardiovascular function study

== ENCOUNTER → 2019-05-21 16:27 | Outpatient (CLI) | payer SELFPAY ==
[2019-04-17 14:20] VITALS: BMI 22.3
[~2019-05-21 16:27] MED LIST changes: +ASPIRIN81 MG PO; +HYDROCODON-ACE1 EAC7 PO; +PLAVIX75 MG PO; +ZANTAC300 MG PO; +ZITHROMAX500 MG PO
[2019-05-21 17:09] LABS: CHOL - HDL RATIO 3.5 ratio (2.3-4.1); LDL-HDL RATIO 2.3 ratio (1.5-3.5)
== END | disposition home or self-care (01) ==
LOC: D.LABREF 16:27
PROVIDERS: ATTEND Internal Medicine Interventional Cardiology
DX: I25.10 Atherosclerotic heart disease of native coronary artery without angina pectoris (principal)

== ENCOUNTER 2019-06-08 13:05 | Emergency (ER) | payer SELFPAY ==
[~2019-06-08] VITALS: Ht 162.6 cm; Wt 74.5 kg
[~2019-06-08 13:05] MED LIST changes: -HYDROCODON-ACE1 EAC7 PO; -ZITHROMAX500 MG PO
[2019-06-08 13:16] VITALS: Ht 162.6 cm; Wt 74.5 kg
[2019-06-08 13:38] LABS: BASOPHILS 0.6 % (0-2); HEMATOCRIT 42.5 % (36.0-48.0); HEMOGLOBIN 14.3 g/dL (12-16); IMMATURE GRANULOCYTES 0.1 % (0-5); LYMPHOCYTES 16.6 % (15-50); MCH 32.6 pg (26.0-34.0); MCHC 33.6 g/dL (31.0-37.0); MCV 96.8 fL (80.0-100.0); MEAN PLATELET VOLUME 10.6 fL (7.4-10.4); MONOCYTES 6.5 % (2-11); NEUTROPHILS 74.2 % (40-80); PLATELET COUNT 232 10x3/uL (130-400); RBC 4.39 10x6/uL (4.00-5.40); RDW 12.4 % (11.5-14.5); WBC 8.6 10x3/uL (4.8-10.8)
[2019-06-08 13:45] LABS: CALC OSMOLALITY 285 mosm/kg (275-300); CARBON DIOXIDE 28.5 mmol/L (21.0-32.0); CHLORIDE - SERUM 106 mmol/L (98-107); CREATININE - SERUM 0.8 mg/dL (0.6-1.3); GLUCOSE 110 mg/dL (74-106); POTASSIUM - SERUM 3.6 mmol/L (3.5-5.1); SODIUM 144 mmol/L (136-145); UREA NITROGEN 8 mg/dL (7-18); eGFR NON AFRICAN AMERICAN 80 mL/min (90-120)
[2019-06-08 13:46] LABS: APTT 28.6 SECONDS (22.8-39.4); INR 0.99 (0.85-1.17); PROTIME 12.6 SECONDS (11.6-15.0)
[2019-06-08] MEDS ORDERED: ZITHROMAX500 MG PO (13:49)
[2019-06-08] MEDS ORDERED: HYDROCODON-ACE1 EAC7 PO (13:49)
[2019-06-08 14:00] LABS: ALBUMIN 3.8 g/dL (3.4-5.0); ALKALINE PHOSPHATASE 125 U/L (46-116); ALT (SGPT) 41 U/L (10-68); BILIRUBIN - TOTAL 0.36 mg/dL (0.2-1.3); CKMB 0.6 U/L (0.0-3.6); CREATINE KINASE 84 UL (21-215)
[2019-06-08 14:06] LABS: TROPONIN-I < 0.017 ng/mL (0.000-0.060)
[2019-06-08 15:35] VITALS: BP 130/82
== END 2019-06-08 15:35 | disposition home or self-care (01) ==
LOC: D.ER 13:05
PROVIDERS: Emergency Medicine
DX: J20.9 Acute bronchitis, unspecified (principal); E78.00 Pure hypercholesterolemia, unspecified; K21.9 Gastro-esophageal reflux disease without esophagitis; R07.9 Chest pain, unspecified

== ENCOUNTER → 2019-08-12 20:25 | Outpatient (CLI) | payer SELFPAY ==
[2019-06-08 13:16] VITALS: BMI 28.2
[~2019-08-12 20:25] MED LIST changes: +HYDROCODON-ACE1 EAC7 PO; +ZITHROMAX500 MG PO
[2019-08-12 21:18] LABS: CHOL - HDL RATIO 2.1 ratio (2.3-4.1); LDL-HDL RATIO 0.9 ratio (1.5-3.5)
== END | disposition home or self-care (01) ==
LOC: D.LABREF 20:25
PROVIDERS: ATTEND Internal Medicine Interventional Cardiology
DX: I25.10 Atherosclerotic heart disease of native coronary artery without angina pectoris (principal)

== ENCOUNTER 2019-09-29 11:14 | Emergency (ER) | payer SELFPAY ==
[~2019-09-29] VITALS: Ht 162.6 cm; Wt 67.3 kg
[2019-09-29 11:21] VITALS: BP 129/74; Ht 162.6 cm; Wt 67.3 kg
== END 2019-09-29 12:58 | disposition home or self-care (01) ==
LOC: D.ER 11:14
DX: J02.9 Acute pharyngitis, unspecified (principal); K21.9 Gastro-esophageal reflux disease without esophagitis; I25.2 Old myocardial infarction